=== PATIENT | male | born 1960 | race Caucasian/White ===

== ENCOUNTER 2017-03-31 18:35 | Emergency (ER) | payer OTHER ==
[~2017-03-31] VITALS: Ht 172.7 cm; Wt 112.5 kg
[~2017-03-31 18:35] MED LIST: GLC850 PO; LISI-461 PO; LRT5 PO; MCR5 PO; NAPR-1169 PO; TRIA37.5 PO
[2017-03-31 18:43] VITALS: TEMP 36.8; Ht 172.7 cm; Wt 112.5 kg
[2017-03-31] MEDS ORDERED: LORAZEPAM 1 MG TAB SL STA (19:30)
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
[2017-03-31 19:57] LABS: BASO % 0.3 %; BASO ABS # 0.02 K/uL (0-0.2); COMPLETE YES; EOS % 1.3 %; HEMATOCRIT 42.4 % (42-52); IG% 0.2 %; LYMPH % 23.8 %; LYMPH ABS # 1.52 K/uL (1.2-3.4); MEAN CELL VOLUME 89.5 fL (80-100); MEAN CORPUSCULAR HEMOGLOBIN 30.2 pg (25-34); MEAN CORPUSCULAR HGB CONC 33.7 g/dl (32-36); MEAN PLATELET VOLUME 9.7 fL (7.4-10.4); MONO % 6.7 %; NEUT % 67.7 %; PLATELET COUNT 227 K/uL (130-400); RED BLOOD COUNT 4.74 M/uL (4.7-6.1)
[2017-03-31 20:12] LABS: BUN/CREATININE RATIO 16.2 (10-20); CALCIUM 8.1 mg/dl (8.5-10.1); CREATININE 0.75 mg/dl (0.60-1.40); POTASSIUM 3.7 mmol/L (3.5-5.1)
[2017-03-31] MEDS ORDERED: METO50TA16 PO (20:12)
[2017-03-31 20:23] VITALS: BP 181/97; PULSE 55; O2SAT 98
[2017-03-31] MEDS ORDERED: ATIVAN 1MG HOMEPACK PO ONE (20:45)
== END 2017-03-31 20:45 | disposition home or self-care (01) ==
LOC: C.EDB 18:35 → C.EDC 20:45
DX: I10 Essential (primary) hypertension (principal); F41.9 Anxiety disorder, unspecified; F32.9 Major depressive disorder, single episode, unspecified; F43.10 Post-traumatic stress disorder, unspecified; E11.9 Type 2 diabetes mellitus without complications; Z83.3 Family history of diabetes mellitus; Z82.49 Family history of ischemic heart disease and other diseases of the circulatory system; Z79.899 Other long term (current) drug therapy